=== PATIENT | female | born 1990 | race Caucasian/White ===

== ENCOUNTER → 2021-05-31 | Outpatient (CLI) | payer BC ==
[~2021-05-31] VITALS: Ht 167.6 cm; Wt 128.8 kg
[~2021-05-31] MED LIST: CLONIDINE HCL0.1 MG PO; COREG25 M1 PO; FLEXERIL PO; LEVO-T75 MCG PO; LIPITOR 20 MG T20 M1 PO; LOSARTAN-HCTZ1 EAC3 PO; NAPROSYN500 M1 PO
[2021-05-31 08:27] LABS: HEMOGLOBIN 13.7 gm/dL (12.0-15.0); MCH 30.3 pg (26.0-34.0); MCHC 35.2 g/dL (28.0-37.0); MCV 86.2 fL (80.0-100.0); RBC 4.53 mil/uL (4.20-5.00); RDW 12.9 % (10.5-14.5); WBC 10.7 thou/uL (4.0-11.0)
[2021-05-31 08:31] VITALS: BP 138/76
[2021-05-31 08:39] LABS: CALCIUM 8.6 mg/dL (8.5-10.1); CREATININE 0.9 mg/dL (0.6-1.0); POTASSIUM 3.7 mmol/L (3.5-5.1)
--- NOTE | 2021-05-31 10:23 | EKG ---
[place] [address] [facility] [place] [address] ELECTROCARDIOGRAM REPORT Name: MANIMAHNAZ Room #: REG DAVID Burnett#: [id number] Admission: 05/31/21 Attend Phys: Soto Gregory MD, Discharge: Date of : 86 Report #: [id number] [facility] Test Date: 2021-05-31 Test Time: 09:14:23 Pat Name: MAHNAZ SINGLETON Department: Room: Gender: F Electronics Computer Mechanic: EMANUEL : 1990 Requested By: Soto Gregory Order Number: [id number] MD: Duran Buck Measurements Intervals [place] Rate: 63 P: 8 [place]: 212 QRS: 38 QRSD: 126 T: 22 QT: 417 QTc: 427 Interpretive Statements Sinus rhythm Prolonged [place] interval Consider left atrial enlargement Nonspecific intraventricular conduction delay No previous ECG available for comparison Electronically Signed On 05-31-2021 10:23:28 VEHICLE SAFETY INSPECTOR by Duran Buck [email or web address] <ELECTRONICALLY SIGNED> By: Duran Buck MD, [facility] 05/31/21 1023 0914 3 Duran Buck MD, FACC /EPI
--- NOTE | 2021-05-31 18:03 | CATHLAB ---
[facility] [place] [address] INVASIVE PROCEDURE REPORT Name: MAHNAZ SINGLETON Room #: REG DAVID LangstonDea#: [id number] Admission: 05/31/21 Attend Phys: Soto Gregory MD, Discharge: Date of : [birth year] Report #: [id number] THIS REPORT FOR: cc: Faheem Mae Jeffrey W. DO Mancuso, Gerald M. MD [facility] ~ APPROVED REPORT Study performed: 05/31/2021 10:46:41 Patient Details Patient Status: Out-Patient Room #: The patient is a 30 year-old female Event Personnel Soto Gregory Nurse Midwife, Margo Zuniga RTR, TRACK MAN Monitor, Dusty Marcus RN RN, Mandi Urrutia RTR Scrub, Nohemi Fairbanks RTR Scrub Procedures Performed Art Access - R femoral artery* Left Heart Cath w/or w/o Coronaries 4851957 [facility] [address] Initial Mod Sed Same Phys/QHP Gr5y 744842 21002 Mod Sed Same Phys/QHP Ea 361013 Hemostasis w/ Mynx Indication Positive stress test Procedure Narrative The Right Groin^ was infiltrated with 1% Lidocaine subcutaneous anesthesia. A PINNACLE 6FR Sheath #[id number] sheath was inserted into the RFA^. Coronary angiography was performed using coronary diagnostic catheters. The right coronary system was accessed and visualized with a JR4 catheter. The left coronary system was accessed and visualized with a JL4 catheter. The left ventricle was accessed and visualized with a PIGTAIL catheter. Left ventricular/Aortic Valve gradient assessed via catheter pullback. Left ventriculogram was performed in 30 degree projection. Closure device was deployed with a 6 Fr MYNXGRIP 6/7F #[id number]. The patient tolerated the procedure well and there were no complications associated with the procedure. There was no hematoma. Intraoperative Conscious Sedation Sedation start time: 11:36 Case end Time: 12:05 [facility] [address] [address] [place] [address] INVASIVE PROCEDURE REPORT Name: NATE SINGLETONKI Room #: REG Hortencia#: [id number] Admission: 05/31/21 Attend Phys: Soto Gregory, Discharge: Date of : 86 Report #: [id number] Fentanyl 50 mcg Versed 1 mg Fluoro Time: 1.18 minutes Dose: DAP 3552.00 cGycm2 406 mGy Contrast Type and Amount: Omnipaque 95 ml Hemodynamics The aortic pressure is 170/80 mmHg with a mean of 111 mmHg. The left ventricular pressure is 158/2 mmHg with a mean of mmHg. The left ventricular end diastolic pressure is 29 mmHg. Conclusion #1 Normal left ventricular size and systolic function EF 60%. #2 left main large free of disease giving rise to LAD and circumflex. #3 LAD widely patent extends to the apex. No occlusive disease. #4 circumflex OM high rising first OM or ramus branch widely patent nondominant vessel. #5 dominant right coronary artery no occlusive disease. Recommendations and plan: Continue aggressive risk factor modification no indication for coronary intervention. <ELECTRONICALLY SIGNED> By: Soto Gregory MD, FACC 05/31/211802 02 02 Soto Gregory MD, FACC /INF
== END | disposition home or self-care (01) ==
LOC: CATH 05-30 08:47
PROVIDERS: ATTEND Internal Medicine Cardiovascular Disease
DX: R94.39 Abnormal result of other cardiovascular function study (principal); I25.10 Atherosclerotic heart disease of native coronary artery without angina pectoris; I10 Essential (primary) hypertension; E03.9 Hypothyroidism, unspecified; E78.5 Hyperlipidemia, unspecified; Z98.890 Other specified postprocedural states; Z79.899 Other long term (current) drug therapy; Z82.49 Family history of ischemic heart disease and other diseases of the circulatory system; Z88.8 Allergy status to other drugs, medicaments and biological substances